=== PATIENT | female | born 1955 | race African-American/Black ===

== ENCOUNTER 2018-05-26 10:54 | Emergency (ER) | payer MEDICARE, MEDICAID ==
[~2018-05-26] VITALS: Ht 160 cm; Wt 90.1 kg
[~2018-05-26 10:54] MED LIST: AMIT25TA PO; BISA-49 PO; DICL100G19 TP; DULO20CA45 PO; HYDR-3307 PO; INSU100C5 SQ-INSULIN; INSU100V8 SQ; LIDO700A30 TD; MELO15TA24 PO; METH500T7 PO; ONDA4TAB10 PO; PRAV20TA2 PO; SPIR25TA5 PO
--- NOTE | 2018-05-26 11:27 | NUR ---
PT. HAS C/O URI AND FLU SYMPTOMS SINCE TUESDAY. PT. DENIES CARDIAC HX. PT. WAS PLACED ON THE HAIR BALER. PT. IS RESTING WITH THE HOB ELEVATED GREATER THAN 30 DEGREES. PT. DENIES ABD. PAIN. SIDERAILS ARE UP X 2 WITH THE CALL LIGHT IN PLACE.
[2018-05-26 11:50] LABS: BASOPHILS # (AUTO) 0.02 x10^3/uL (0-0.1); BASOPHILS % (AUTO) 0 % (0-1); EOSINOPHILS # (AUTO) 0.24 x10^3/uL (0-0.4); EOSINOPHILS % (AUTO) 3 % (1-7); LYMPHOCYTES # (AUTO) 3.84 x10^3/uL (1-3.4); LYMPHOCYTES % (AUTO) 51 % (22-44); MD NO; MEAN CORPUSCULAR HEMOGLOBIN 28.9 pg (27.0-34.8); MEAN CORPUSCULAR HGB CONC 32.7 g/dL (32.4-35.8); MEAN CORPUSCULAR VOLUME 88.3 fL (80-100); MEAN PLATELET VOLUME 8.7 fL (7.4-10.4); MONOCYTES # (AUTO) 0.43 x10^3/uL (0.2-0.8); MONOCYTES % (AUTO) 6 % (2-9); NEUTROPHILS # (AUTO) 2.95 x10^3/uL (1.8-6.8); NEUTROPHILS % (AUTO) 39 % (42-75); PLATELET COUNT 227 x10^3/uL (130-400); RED BLOOD COUNT 4.31 x10^6/uL (3.82-5.3); RED CELL DISTRIBUTION WIDTH 14.6 % (9.6-15.2)
[2018-05-26 12:07] LABS: CHLORIDE 107 mmol/L (98-107)
[2018-05-26 12:14] LABS: ALBUMIN 3.4 g/dL (3.4-5.0); ANION GAP 8 mmol/L (5-15); CALCIUM 8.6 mg/dL (8.5-10.1)
[2018-05-26 12:18] LABS: RAPID INFLUENZA A Negative (Negative); RAPID INFLUENZA B Negative (Negative)
--- NOTE | 2018-05-26 12:24 | NUR ---
PT. IS RESTING WITHOUT CONCERNS.
[2018-05-26 13:14] VITALS: BP 188/77
== END 2018-05-26 13:16 | disposition home or self-care (01) ==
LOC: ED 11:44
DX: H65.02 Acute serous otitis media, left ear (principal); J01.00 Acute maxillary sinusitis, unspecified; B34.9 Viral infection, unspecified; R11.2 Nausea with vomiting, unspecified; I10 Essential (primary) hypertension; E11.9 Type 2 diabetes mellitus without complications
CPT/HCPCS: 36415; 71046; 80048; 82040; 85025; 87400; 93005; 99284